=== PATIENT | female | born 1950 | race Caucasian/White ===

== ENCOUNTER 2019-07-03 14:16 | Emergency (ER) | payer MEDICARE, OTHER ==
[~2019-07-03] VITALS: Ht 152.4 cm; Wt 77.1 kg
[2019-07-03 14:23] VITALS: Ht 152.4 cm; Wt 77.1 kg
[2019-07-03 15:37] LABS: URIC ACID 5.8 mg/dL (2.6-6.0)
[2019-07-03 15:39] LABS: C REACTIVE PROTEIN < 0.2 mg/dL (<=0.9)
[2019-07-03 16:15] VITALS: BP 130/80
== END 2019-07-03 16:16 | disposition home or self-care (01) ==
LOC: ED 14:16
PROVIDERS: Emergency Medicine
DX: M13.872 Other specified arthritis, left ankle and foot (principal); I11.0 Hypertensive heart disease with heart failure; I50.9 Heart failure, unspecified; F32.9 Major depressive disorder, single episode, unspecified